=== PATIENT | female | born 1970 | race African-American/Black ===

== ENCOUNTER 2019-06-12 17:50 | Inpatient (IN) ==
[2019-06-12 19:05] LABS: Basophils % 0.3 % (0.0-0.8); Eosinophils # 0.1 10*3/uL (0.0-0.87); Eosinophils % 1.2 % (0.00-10.9); Hematocrit 39.2 VOL% (35.7-47.0); Hemoglobin 12.2 GM/DL (12.0-16.0); Immature Granulocytes % 0.5 %; Immature Granulocytes Absolute 0.05 #; Lymphocytes # 2.9 10*3/uL (1.4-4.0); Lymphocytes % 27.9 % (21.3-54.2); Mean Corpuscular HGB Conc 31.1 GM/DL (32-36); Mean Corpuscular Volume 91.4 FL (87-102); Mean Platelet Volume 9.6 FL (9.6-12.0); Monocytes % 9.2 % (1.7-12.7); Neutrophils % 60.9 % (38.7-73.9); Platelet Count 304 T/CUMM (130-400); Red Blood Count 4.29 MC/CUMM (3.8-5.5); Red Cell Distribution Width 15.6 % (9.3-17.3); White Blood Count 10.4 T/CUMM (4-12)
[2019-06-12] MEDS ORDERED: METOPROLOL TARTRATE 5 MG/5 ML VIAL IV STA (19:17)
[2019-06-12] MEDS ORDERED: FUROSEMIDE 100 MG/10 ML VIAL IV STA (19:17)
[2019-06-12 19:26] LABS: Alanine Aminotransferase 64 U/L (13-56); Albumin 3.3 G/DL (3.4-5.0); Alkaline Phosphatase 99 U/L (45-117); Aspartate Amino Transferase 40 U/L (0-37); Bilirubin,Total < 0.39 MG/DL (0.2-1.0); Blood Urea Nitrogen 22 MG/DL (7-18); Calcium 8.6 MG/DL (8.5-10.1); Estimated Glom Filtration Rate 84 ML/MIN; Glucose 98 MG/DL (74-106); Osmolality,Calculated 292.6 MOS/KG (273-304); Total Protein 6.3 G/DL (6.4-8.3)
[2019-06-12] MEDS ORDERED: ONDANSETRON 4 MG/2 ML VIAL IV PRN (20:12)
[2019-06-12] MEDS ORDERED: ZALEPLON 5 MG CAPSULE PO PRN (20:12)
[2019-06-12] MEDS ORDERED: PROMETHAZINE 25 MG TABLET PO PRN (20:12)
[2019-06-12] MEDS ORDERED: DOCUSATE SODIUM 100 MG CAPSULE PO PRN (20:12)
[2019-06-12] MEDS ORDERED: guaiFENesin/DM ER 600-30 MG TABLET PO PRN (20:12)
[2019-06-12] MEDS ORDERED: hydrALAZINE 20 MG/1 ML VIAL IV PRN (20:18)
[2019-06-12] MEDS ORDERED: ENOXAPARIN 40 MG/0.4 ML SYRINGE SUBCUT SCH (21:00)
[2019-06-12] MEDS: carvediloL 6.25 MG TABLET PO SCH (21:45)
[2019-06-13] MEDS: FUROSEMIDE 40 MG/4 ML VIAL IV SCH ×2 (08:05→16:35)
[2019-06-13] MEDS: carvediloL 6.25 MG TABLET PO SCH ×2 (08:05→16:35)
[2019-06-13] MEDS ORDERED: FERROUS SULFATE 325 MG TABLET PO SCH (09:00)
[2019-06-13] MEDS ORDERED: LOSARTAN 50 MG TABLET PO SCH (09:00)
[2019-06-13] MEDS ORDERED: PANTOPRAZOLE 40 MG TABLET PO SCH (09:00)
[2019-06-13] MEDS: ACETAMINOPHEN 325 MG TABLET PO PRN ×2 (11:25→16:42)
[2019-06-13 11:48] LABS: Troponin I 0.019 NG/ML (0.00-0.045)
[2019-06-13 15:15] LABS: Troponin I < 0.015 NG/ML (0.00-0.045)
[2019-06-13 16:30] VITALS: BP 150/108
[2019-06-13] MEDS ORDERED: ASCORBIC ACID 500 MG TABLET PO SCH (21:00)
[2019-06-14] MEDS ORDERED: SPIRONOLACTONE 25 MG TABLET PO SCH (09:00)
== END 2019-06-13 18:26 | disposition home or self-care (01) | DRG 293 ==
LOC: N.ED 17:50 → N.EDINP 20:12 → N.TELES 21:15
PROVIDERS: ADMIT Hospitalist; ATTEND Hospitalist